=== PATIENT | female | born 2000 | race African-American/Black ===

== ENCOUNTER 2021-03-12 12:37 | Emergency (ER) | payer OTHER ==
[~2021-03-12] VITALS: Ht 162.6 cm; Wt 45.4 kg
[2021-03-12 12:45] VITALS: BP 119/75
== END 2021-03-12 13:35 | disposition home or self-care (01) ==
LOC: ER 12:37
PROVIDERS: Physician Assistant
DX: J06.9 Acute upper respiratory infection, unspecified (principal); Z20.822 Contact with and (suspected) exposure to COVID-19